=== PATIENT | female | born 1950 | race Caucasian/White ===

== ENCOUNTER 2017-11-07 08:43 | Day surgery (SDC) | payer MEDICARE, OTHER ==
[~2017-11-07 08:43] MED LIST: ALBU90OI INH; AMIT75 PO; AMLO10 PO; ASPI325EC PO; CRANBERRY500 M1 PO; Desyrel50 MG PO; ESCI10 PO; GABA600 PO; IBUP800 PO; LABE100 PO; Labetalol HCl300 MG PO; MULTI VITAMIN1 EACH PO; POLY500 PO; PRAV20 PO; QUET25 PO; TOPI50 PO; Triamcinolone A15 GM TOP; Ultram50 MG PO
[2017-11-08] MEDS ORDERED: Percocet 5-3251 EACH PO (08:57)
== END 2017-11-08 13:40 | disposition home or self-care (01) ==
LOC: SURS 08:43 → ORSCMMR 08:43 → PRE IP 08:43 → SURS 08:43 → EDSTATUS 10:15 → PRE IP 10:15 → SURS 14:16 → ORSCMMR 11-08 13:40
PROVIDERS: Orthopaedic Surgery
PROC: 0QSF04Z Reposition Left Patella with Internal Fixation Device, Open Approach (ICD-10-PCS; principal; 2017-11-07 10:15)
DX: S82.002A Unspecified fracture of left patella, initial encounter for closed fracture (principal); J44.9 Chronic obstructive pulmonary disease, unspecified; I25.2 Old myocardial infarction; Z87.891 Personal history of nicotine dependence; Z86.73 Personal history of transient ischemic attack (TIA), and cerebral infarction without residual deficits; I25.10 Atherosclerotic heart disease of native coronary artery without angina pectoris; Z79.899 Other long term (current) drug therapy
CPT/HCPCS: 73560-LT; 97161; 97530; C1713; G8978; G8979; G8980; J0690; J1100; J2250; J2270; J2405; J2550; J3010; J7120; Q0163

== ENCOUNTER 2017-11-28 08:43 | Day surgery (SDC) | payer MEDICARE, OTHER ==
[~2017-11-28] VITALS: Ht 157.5 cm; Wt 67.6 kg
[~2017-11-28 08:43] MED LIST changes: +Percocet 5-3251 EACH PO
== END 2017-11-29 11:30 | disposition home or self-care (01) ==
LOC: ORSCMMR 08:43 → SURS 08:43 → PRE IP 08:43 → SURS 08:43 → EDSTATUS 10:15 → PRE IP 10:15 → SURS 13:02 → ORSCMMR 11-29 11:30 → SURS 11-29 11:30
PROVIDERS: Orthopaedic Surgery
PROC: 0QSF04Z Reposition Left Patella with Internal Fixation Device, Open Approach (ICD-10-PCS; principal; 2017-11-28 10:15)
DX: S82.002G Unspecified fracture of left patella, subsequent encounter for closed fracture with delayed healing (principal); I25.10 Atherosclerotic heart disease of native coronary artery without angina pectoris; I25.2 Old myocardial infarction; I69.354 Hemiplegia and hemiparesis following cerebral infarction affecting left non-dominant side; Z79.82 Long term (current) use of aspirin; Z79.899 Other long term (current) drug therapy
CPT/HCPCS: 73560-LT; 94762; 97110; 97161; 97530; G8978; G8979; G8980; J0171; J0690; J1100; J1170; J1885; J2250; J2405; J3010; J7120; Q0163

== ENCOUNTER → 2018-11-18 | Outpatient (CLI) | payer MEDICARE, OTHER | END | disposition home or self-care (01) | LOC: LAB 18:31 → LAB SHORT 18:31 | DX: R35.0 Frequency of micturition (principal) | CPT/HCPCS: 87086 ==

== ENCOUNTER 2019-01-22 20:08 | Emergency (ER) | payer MEDICARE, OTHER ==
[~2019-01-22] VITALS: Ht 157.5 cm; Wt 74.8 kg
== END 2019-01-22 23:29 | disposition home or self-care (01) ==
LOC: ER 20:08
DX: S20.212A Contusion of left front wall of thorax, initial encounter (principal); I10 Essential (primary) hypertension; F32.9 Major depressive disorder, single episode, unspecified; F41.9 Anxiety disorder, unspecified; Z87.891 Personal history of nicotine dependence; Z79.899 Other long term (current) drug therapy; W01.0XXA Fall on same level from slipping, tripping and stumbling without subsequent striking against object, initial encounter
CPT/HCPCS: 71101; 99283-25; A9270-GY

== ENCOUNTER 2019-01-24 00:30 | Emergency (ER) | payer MEDICARE, OTHER ==
[~2019-01-24] VITALS: Ht 157.5 cm; Wt 68.0 kg
[2019-01-24 01:02] LABS: Source, Urine Catheter
[2019-01-24 01:06] LABS: Bilirubin, Urine Neg (Neg); Blood, Urine Neg (Neg); Glucose Qualitative, Urine Neg (Neg); Ketones, Urine Neg (Neg); Leukocyte Esterase, Urine Neg (Neg); Nitrite, Urine Neg (Neg); Protein, Urine 3+ (Neg); Urobilinogen, Urine NORM (Normal)
[2019-01-24 01:08] LABS: Appearance, Urine Clear (Clear); Color, Urine Pale Yellow (P-Yellow)
[2019-01-24] MEDS ORDERED: Tizanidine HCl2 MG PO (01:08)
[2019-01-24] MEDS ORDERED: OLAN7.5 PO (01:08)
[2019-01-24 01:14] LABS: Amorphous Light (0-Heavy); Bacteria Not Seen /hpf; Red Blood Cells, Urine Rare /hpf (0-2); Squamous Epithelial Cells Not Seen /hpf (Few); White Blood Cells, Urine Rare /hpf (0-5)
[2019-01-24 01:25] LABS: U Amphetamine Screen Not Detected; U Barbituate Screen Not Detected; U Benzodiazapine Screen Not Detected; U Buprenorphine Screen Not Detected; U Cannabinoids Screen DETECTED; U Cocaine Screen Not Detected; U Methadone Screen Not Detected; U Methamphetamine Screen Not Detected; U Opiates Screen Not Detected; U Oxycodone Screen Not Detected; U Phencyclidine Screen Not Detected; U Propoxyphene Screen Not Detected
[2019-01-24 02:05] LABS: BASOPHILS ABSOLUTE AUTO 0.01 K/mm3 (0.00-0.23); BASOPHILS PERCENT AUTO 0 % (0-2); EOSINOPHILS ABSOLUTE AUTO 0.25 K/mm3 (0.00-0.68); EOSINOPHILS PERCENT AUTO 3 % (0-6); Hematocrit 44.7 % (33.0-51.0); Hemoglobin 14.7 g/dL (11.5-16.0); IMMATURE GRAN ABSOLUTE AUTO 0.05 K/mm3 (0.00-0.10); IMMATURE GRAN PERCENT AUTO 1 % (0-1); LYMPHOCYTES ABSOLUTE AUTO 1.46 K/mm3 (0.84-5.20); LYMPHOCYTES PERCENT AUTO 17 % (21-46); MONOCYTES ABSOLUTE AUTO 0.55 K/mm3 (0.16-1.47); MONOCYTES PERCENT AUTO 6 % (4-13); Mean Corpuscular HGB 29.9 pg (26.0-34.0); Mean Corpuscular HGB Conc 32.9 g/dL (31.5-36.5); Mean Corpuscular Volume 91 fL (80-100); NEUTROPHILS ABSOLUTE AUTO 6.21 K/mm3 (1.96-9.15); NEUTROPHILS PERCENT AUTO 73 % (41-73); RDW Coefficient Variation 13.5 % (11.7-14.2); RDW Standard Deviation 45.2 fL (35.1-46.3); Red Blood Cell Count 4.92 M/mm3 (3.80-5.20); White Blood Cell Count 8.53 K/mm3 (4.00-11.30)
[2019-01-24 02:08] LABS: International Normalized Ratio 0.94
[2019-01-24 02:12] LABS: Mean Platelet Volume 11.6 fL (9.1-12.4); Platelet Count 197 K/mm3 (150-400)
[2019-01-24 02:50] LABS: Alanine Aminotransfer (ALT/SGP 33 U/L (12-78); Albumin, Blood 3.7 g/dL (3.4-5.0); Albumin/Globulin Ratio 1.1 (0.8-1.8); Alk Phos 100 U/L (50-136); Anion Gap 11 mmol/L (6-16); Aspartate Aminotrans (AST/SGOT 24 U/L (12-37); Bilirubin, Total 0.3 mg/dL (0.1-1.0); Blood Urea Nitrogen 21 mg/dL (8-24); Bun/Creatinine Ratio 26.6 (12.0-20.0); CO2, Blood 21 mmol/L (21-32); Calcium, Blood 8.7 mg/dL (8.5-10.1); Chloride, Blood 111 mmol/L (98-108); Creatinine, Blood 0.79 mg/dL (0.40-1.00); Globulin, Blood 3.3 g/dL (2.2-4.0); Glomerular Filtration Rate >60 (60-); Glucose, Blood 138 mg/dL (70-99); Potassium, Blood 3.8 mmol/L (3.5-5.5); Sodium, Blood 143 mmol/L (136-145)
== END 2019-01-24 03:03 | disposition home or self-care (01) ==
LOC: ER 00:30
PROVIDERS: Emergency Medicine
DX: S06.5X9A Traumatic subdural hemorrhage with loss of consciousness of unspecified duration, initial encounter (principal); S00.03XA Contusion of scalp, initial encounter; I10 Essential (primary) hypertension; G89.29 Other chronic pain; Z88.8 Allergy status to other drugs, medicaments and biological substances; Z79.899 Other long term (current) drug therapy; Z86.73 Personal history of transient ischemic attack (TIA), and cerebral infarction without residual deficits; Z87.891 Personal history of nicotine dependence; W19.XXXA Unspecified fall, initial encounter
CPT/HCPCS: 36415; 70450; 72125; 80053; 81001; 85025; 85610; 85730; J2270; P9612

== ENCOUNTER 2019-01-27 17:13 | Inpatient (IN) | payer MEDICARE, OTHER ==
[~2019-01-27] VITALS: Ht 160 cm; Wt 77.1 kg
[~2019-01-27 17:13] MED LIST changes: -AMIT75 PO; +Amitriptyline100 MG PO; +OLAN7.5 PO; +Tizanidine HCl2 MG PO
[2019-01-27 18:56] LABS: Albumin, Blood 3.5 g/dL (3.4-5.0); Albumin/Globulin Ratio 0.8 (0.8-1.8); Bilirubin, Total 0.4 mg/dL (0.1-1.0); Bun/Creatinine Ratio 21.1 (12.0-20.0); Calcium, Blood 9.1 mg/dL (8.5-10.1); Creatinine, Blood 1.09 mg/dL (0.40-1.00); Globulin, Blood 4.3 g/dL (2.2-4.0); Total Protein, Blood 7.8 g/dL (6.4-8.2)
[2019-01-27 19:31] LABS: Source, Urine Clean Catch
[2019-01-27 19:35] LABS: Bilirubin, Urine Neg (Neg); Blood, Urine 2+ (Neg); Glucose Qualitative, Urine Neg (Neg); Ketones, Urine Neg (Neg); Leukocyte Esterase, Urine 3+ (Neg); Nitrite, Urine Neg (Neg); Protein, Urine 3+ (Neg); Urobilinogen, Urine NORM (Normal)
[2019-01-27 19:36] LABS: Appearance, Urine Clear (Clear); Color, Urine Yellow (P-Yellow)
[2019-01-27 19:49] LABS: Bacteria Few /hpf; Red Blood Cells, Urine 0-2 /hpf (0-2); Squamous Epithelial Cells Few /hpf (Few)
[2019-01-27 20:06] LABS: BASOPHILS ABSOLUTE AUTO 0.01 K/mm3 (0.00-0.23); BASOPHILS PERCENT AUTO 0 % (0-2); EOSINOPHILS ABSOLUTE AUTO 0.24 K/mm3 (0.00-0.68); EOSINOPHILS PERCENT AUTO 3 % (0-6); Hematocrit 40.5 % (33.0-51.0); IMMATURE GRAN ABSOLUTE AUTO 0.03 K/mm3 (0.00-0.10); IMMATURE GRAN PERCENT AUTO 0 % (0-1); LYMPHOCYTES ABSOLUTE AUTO 1.75 K/mm3 (0.84-5.20); LYMPHOCYTES PERCENT AUTO 22 % (21-46); MONOCYTES ABSOLUTE AUTO 0.67 K/mm3 (0.16-1.47); MONOCYTES PERCENT AUTO 8 % (4-13); Mean Corpuscular HGB 29.3 pg (26.0-34.0); Mean Corpuscular HGB Conc 32.1 g/dL (31.5-36.5); Mean Corpuscular Volume 91 fL (80-100); Mean Platelet Volume 10.2 fL (9.1-12.4); NEUTROPHILS ABSOLUTE AUTO 5.37 K/mm3 (1.96-9.15); NEUTROPHILS PERCENT AUTO 67 % (41-73); Platelet Count 248 K/mm3 (150-400); RDW Coefficient Variation 13.8 % (11.7-14.2); RDW Standard Deviation 47.2 fL (35.1-46.3); Red Blood Cell Count 4.43 M/mm3 (3.80-5.20); White Blood Cell Count 8.07 K/mm3 (4.00-11.30)
[2019-01-27] MEDS ORDERED: LABE100 PO (20:45)
[2019-01-27] MEDS ORDERED: GABA800 PO (20:46)
--- NOTE | 2019-01-28 05:11 | NUR ---
VSS, AFEBRILE, A/O, PT WAS FOUND STANDING IN THE BATHROOM. PT WAS ANGRY/SURPRISED/FRUSTRATED TO DISCOVER THAT SHE IS IN THE HOSPITAL. PT WAS UNSURE ABOUT WHICH HOSPITAL SHE IS IN RIGHT NOW, BUT WAS EASILY REORIENTED. PT STATED "i DON'T LIKE TO GIVE OTHER PEOPLE CONTROL OVER MY LIFE". HER DEFIANCE AND RESISTANCE FADED AFTER SHE WAS REMINDED THAT SHE HAS BEEN FALLING AT HOME. PT ACKNOWLEDGED THAT SHE NEEDS PHYSICAL THERAPY TO LEARN HOW TO BE SAFELY INDEPENDENT AGAIN. PT REMAINS SOMEWHAT ANNOYED/DEFIANT AT THIS TIME. SHE SETS OFF THE BED ALARM FREQUENTLY. PT IS GOING TO NEED CLOSE SUPERVISION TO PREVENT FURTHER INJURY TO HER ALREADY HEAVILY BRUISED BODY. SHE IS TRYING TO REACH HER BY TELEPHONE AT THIS TIME. WILL CONTINUE TO MONITOR.
[2019-01-28 05:50] LABS: BASOPHILS ABSOLUTE AUTO 0.02 K/mm3 (0.00-0.23); BASOPHILS PERCENT AUTO 0 % (0-2); EOSINOPHILS ABSOLUTE AUTO 0.32 K/mm3 (0.00-0.68); EOSINOPHILS PERCENT AUTO 4 % (0-6); Hematocrit 39.6 % (33.0-51.0); Hemoglobin 12.9 g/dL (11.5-16.0); IMMATURE GRAN ABSOLUTE AUTO 0.02 K/mm3 (0.00-0.10); IMMATURE GRAN PERCENT AUTO 0 % (0-1); LYMPHOCYTES ABSOLUTE AUTO 1.66 K/mm3 (0.84-5.20); LYMPHOCYTES PERCENT AUTO 23 % (21-46); MONOCYTES ABSOLUTE AUTO 0.68 K/mm3 (0.16-1.47); MONOCYTES PERCENT AUTO 9 % (4-13); Mean Corpuscular HGB 29.7 pg (26.0-34.0); Mean Corpuscular HGB Conc 32.6 g/dL (31.5-36.5); Mean Corpuscular Volume 91 fL (80-100); Mean Platelet Volume 10.3 fL (9.1-12.4); NEUTROPHILS ABSOLUTE AUTO 4.66 K/mm3 (1.96-9.15); NEUTROPHILS PERCENT AUTO 63 % (41-73); Platelet Count 245 K/mm3 (150-400); RDW Coefficient Variation 13.8 % (11.7-14.2); RDW Standard Deviation 46.5 fL (35.1-46.3); Red Blood Cell Count 4.34 M/mm3 (3.80-5.20); White Blood Cell Count 7.36 K/mm3 (4.00-11.30)
[2019-01-28 06:11] LABS: Bun/Creatinine Ratio 19.6 (12.0-20.0); Calcium, Blood 8.9 mg/dL (8.5-10.1); Creatinine, Blood 1.07 mg/dL (0.40-1.00); Magnesium, Blood 2.3 mg/dL (1.6-2.4); Potassium, Blood 3.5 mmol/L (3.5-5.5)
--- NOTE | 2019-01-28 17:37 | NUR ---
PT AOX3 WITH SOME MINOR CONFUSION. PT HAS BEEN CALLING APPROPRIATELY AND IS TREATED FOR PAIN PER EMAR. PT UP IN CHAIR MOST OF THE DAY AND IS A ONE PERSON WITH GAIT BELT AND CANE AT THIS TIME. PT RESTING IN BED, WILL CONTINUE TO MONITOR CALL LIGHT WITHIN REACH.
--- NOTE | 2019-01-29 05:33 | NUR ---
VSS, AFEBRILE, A/O, PT IS MORE COOPERATIVE AND RESPONSIVE TODAY. PT SLEPT WELL OVERNOC, NO COMPLAINTS. PT IS IMPROVING IN HER MOBILITY AND SAFETY AWARENESS. WILL REPORT TO ON-COMING SHIFT.
[2019-01-29] MEDS ORDERED: CEPH500 PO (11:13)
--- NOTE | 2019-01-29 11:26 | NUR ---
UNABLE TO SCHED DISCHARGE FOLLOW UP APT CALLED PTS PRIMARY OFFICE TO SCHEDULE, THE OFFICE REQUIRES TO SPEAK WITH PT TO SCHEDULE APT FOR INSURANCE INFORMATION.
--- NOTE | 2019-01-29 12:19 | NUR ---
PATIENT DISCHARGE THE PATIENT WAS DISCHARGED HOME VIA AMBULANCE, AFTER DISCHARGE INSTRUCTIONS WERE GIVEN TO THE PATIENT. THE PATIENT WAS INSTRUCTED TO FOLLOW UP WITH HER PCP AND TO ALUMINUM POURER HER PRESCRIPTION AT HER PHARMACY. THE PATIENT LEFT THE HOSPITAL WITHOUT CONCERN OR COMPLAINT.
== END 2019-01-29 12:16 | disposition home or self-care (01) | DRG 689 ==
LOC: ER 17:13 → MEDS 22:21 → ENPENDDIS 01-29 11:23 → MEDS 01-29 12:16
PROVIDERS: Emergency Medicine; Nurse Practitioner Acute Care; ADMIT Internal Medicine
DX: N39.0 Urinary tract infection, site not specified (principal); G92 Toxic encephalopathy; I69.354 Hemiplegia and hemiparesis following cerebral infarction affecting left non-dominant side; I50.32 Chronic diastolic (congestive) heart failure; W19.XXXA Unspecified fall, initial encounter; R32 Unspecified urinary incontinence; R29.6 Repeated falls; I11.0 Hypertensive heart disease with heart failure; B96.20 Unspecified Escherichia coli [E. coli] as the cause of diseases classified elsewhere; Z95.0 Presence of cardiac pacemaker; Z90.5 Acquired absence of kidney; Z87.891 Personal history of nicotine dependence
CPT/HCPCS: 36415; 70450; 80048; 80053; 81001; 82550; 83735; 85025; 87077; 87086; 87186; 96365; 96375; 97116; 97162; 97166; 97535; 99285-25; J0696; J2405; J3010; J7030

== ENCOUNTER 2019-03-26 17:54 | Emergency (ER) | payer OTHER ==
[~2019-03-26] VITALS: Ht 157.5 cm; Wt 73.0 kg
[~2019-03-26 17:54] MED LIST changes: +CEPH500 PO; +GABA800 PO
[2019-03-26 18:28] LABS: Source, Urine Catheter
[2019-03-26 18:32] LABS: Bilirubin, Urine Neg (Neg); Blood, Urine Neg (Neg); Glucose Qualitative, Urine Neg (Neg); Ketones, Urine Neg (Neg); Leukocyte Esterase, Urine Neg (Neg); Nitrite, Urine Neg (Neg); Protein, Urine 3+ (Neg); Specific Gravity, Urine 1.015 (1.003-1.022); Urobilinogen, Urine NORM (Normal)
[2019-03-26 18:57] LABS: Appearance, Urine Clear (Clear); Color, Urine Yellow (P-Yellow)
[2019-03-26 18:58] LABS: Bacteria Few /hpf; Red Blood Cells, Urine 0-2 /hpf (0-2); Squamous Epithelial Cells Few /hpf (Few)
[2019-03-26 19:27] LABS: BASOPHILS ABSOLUTE AUTO 0.02 K/mm3 (0.00-0.23); BASOPHILS PERCENT AUTO 0 % (0-2); EOSINOPHILS ABSOLUTE AUTO 0.17 K/mm3 (0.00-0.68); EOSINOPHILS PERCENT AUTO 2 % (0-6); Hematocrit 44.4 % (33.0-51.0); Hemoglobin 14.5 g/dL (11.5-16.0); IMMATURE GRAN ABSOLUTE AUTO 0.03 K/mm3 (0.00-0.10); IMMATURE GRAN PERCENT AUTO 0 % (0-1); LYMPHOCYTES ABSOLUTE AUTO 1.97 K/mm3 (0.84-5.20); LYMPHOCYTES PERCENT AUTO 26 % (21-46); MONOCYTES ABSOLUTE AUTO 0.54 K/mm3 (0.16-1.47); MONOCYTES PERCENT AUTO 7 % (4-13); Mean Corpuscular HGB 29.4 pg (26.0-34.0); Mean Corpuscular HGB Conc 32.7 g/dL (31.5-36.5); Mean Corpuscular Volume 90 fL (80-100); Mean Platelet Volume 10.5 fL (9.1-12.4); NEUTROPHILS ABSOLUTE AUTO 4.75 K/mm3 (1.96-9.15); NEUTROPHILS PERCENT AUTO 64 % (41-73); Platelet Count 225 K/mm3 (150-400); RDW Coefficient Variation 14.3 % (11.7-14.2); RDW Standard Deviation 47.6 fL (35.1-46.3); Red Blood Cell Count 4.94 M/mm3 (3.80-5.20); White Blood Cell Count 7.48 K/mm3 (4.00-11.30)
[2019-03-26 19:50] LABS: Anion Gap 7 mmol/L (6-16); Blood Urea Nitrogen 22 mg/dL (8-24); CO2, Blood 25 mmol/L (21-32); Calcium, Blood 8.8 mg/dL (8.5-10.1); Chloride, Blood 112 mmol/L (98-108); Creatinine, Blood 0.96 mg/dL (0.40-1.00); Glomerular Filtration Rate >60 (60-); Glucose, Blood 107 mg/dL (70-99); Potassium, Blood 3.3 mmol/L (3.5-5.5); Sodium, Blood 144 mmol/L (136-145)
[2019-03-26] MEDS ORDERED: Norco 5-325 Ta1 EACH PO (20:08)
== END 2019-03-26 20:58 | disposition home or self-care (01) ==
LOC: ER 17:54
PROVIDERS: Emergency Medicine
DX: S09.90XA Unspecified injury of head, initial encounter (principal); S39.012A Strain of muscle, fascia and tendon of lower back, initial encounter; S66.911A Strain of unspecified muscle, fascia and tendon at wrist and hand level, right hand, initial encounter; I11.0 Hypertensive heart disease with heart failure; I50.30 Unspecified diastolic (congestive) heart failure; Z87.891 Personal history of nicotine dependence; W18.30XA Fall on same level, unspecified, initial encounter
CPT/HCPCS: 36415; 70450; 72100; 73110; 80048; 81001; 85025; 96374; 99284-25; A9270; J1170; P9612

== ENCOUNTER 2019-03-27 20:25 | Emergency (ER) | payer OTHER ==
[~2019-03-27] VITALS: Ht 157.5 cm; Wt 73.5 kg
[~2019-03-27 20:25] MED LIST changes: +Norco 5-325 Ta1 EACH PO
[2019-03-27 20:46] LABS: BASOPHILS ABSOLUTE AUTO 0.02 K/mm3 (0.00-0.23); BASOPHILS PERCENT AUTO 0 % (0-2); EOSINOPHILS ABSOLUTE AUTO 0.25 K/mm3 (0.00-0.68); EOSINOPHILS PERCENT AUTO 3 % (0-6); Hematocrit 46.7 % (33.0-51.0); IMMATURE GRAN ABSOLUTE AUTO 0.03 K/mm3 (0.00-0.10); IMMATURE GRAN PERCENT AUTO 0 % (0-1); LYMPHOCYTES ABSOLUTE AUTO 1.86 K/mm3 (0.84-5.20); LYMPHOCYTES PERCENT AUTO 22 % (21-46); MONOCYTES PERCENT AUTO 7 % (4-13); Mean Corpuscular HGB 29.4 pg (26.0-34.0); Mean Corpuscular HGB Conc 32.1 g/dL (31.5-36.5); Mean Corpuscular Volume 92 fL (80-100); Mean Platelet Volume 11.4 fL (9.1-12.4); NEUTROPHILS ABSOLUTE AUTO 5.76 K/mm3 (1.96-9.15); NEUTROPHILS PERCENT AUTO 68 % (41-73); Platelet Count 194 K/mm3 (150-400); RDW Coefficient Variation 14.2 % (11.7-14.2); RDW Standard Deviation 47.9 fL (35.1-46.3); White Blood Cell Count 8.52 K/mm3 (4.00-11.30)
[2019-03-27 20:58] LABS: Alanine Aminotransfer (ALT/SGP 29 U/L (12-78); Albumin, Blood 3.6 g/dL (3.4-5.0); Albumin/Globulin Ratio 0.9 (0.8-1.8); Alk Phos 133 U/L (50-136); Anion Gap 10 mmol/L (6-16); Aspartate Aminotrans (AST/SGOT 23 U/L (12-37); Bilirubin, Total 0.2 mg/dL (0.1-1.0); Blood Urea Nitrogen 21 mg/dL (8-24); Bun/Creatinine Ratio 17.5 (12.0-20.0); CO2, Blood 25 mmol/L (21-32); Calcium, Blood 8.9 mg/dL (8.5-10.1); Chloride, Blood 107 mmol/L (98-108); Globulin, Blood 4.2 g/dL (2.2-4.0); Glomerular Filtration Rate 48 (60-); Glucose, Blood 134 mg/dL (70-99); Potassium, Blood 3.2 mmol/L (3.5-5.5); Sodium, Blood 142 mmol/L (136-145); Total Protein, Blood 7.8 g/dL (6.4-8.2); Troponin I <0.015 ng/mL (0.000-0.040)
== END 2019-03-27 22:56 | disposition short-term general hospital (02) ==
LOC: ER 20:25
PROVIDERS: Physician Assistant
DX: S06.5X9A Traumatic subdural hemorrhage with loss of consciousness of unspecified duration, initial encounter (principal); I10 Essential (primary) hypertension; Z86.73 Personal history of transient ischemic attack (TIA), and cerebral infarction without residual deficits; Z87.891 Personal history of nicotine dependence; Z91.81 History of falling; W17.89XA Other fall from one level to another, initial encounter
CPT/HCPCS: 70450; 80053; 84484; 85025; 93005; 93010; 99285-25

== ENCOUNTER 2019-04-09 08:57 | Inpatient (IN) | payer OTHER ==
[~2019-04-09] VITALS: Ht 162.6 cm; Wt 79.5 kg
[2019-04-09 09:15] LABS: BASOPHILS ABSOLUTE AUTO 0.01 K/mm3 (0.00-0.23); BASOPHILS PERCENT AUTO 0 % (0-2); EOSINOPHILS ABSOLUTE AUTO 0.26 K/mm3 (0.00-0.68); EOSINOPHILS PERCENT AUTO 3 % (0-6); Hematocrit 32.9 % (33.0-51.0); Hemoglobin 10.7 g/dL (11.5-16.0); IMMATURE GRAN ABSOLUTE AUTO 0.06 K/mm3 (0.00-0.10); IMMATURE GRAN PERCENT AUTO 1 % (0-1); LYMPHOCYTES ABSOLUTE AUTO 0.31 K/mm3 (0.84-5.20); LYMPHOCYTES PERCENT AUTO 3 % (21-46); MONOCYTES PERCENT AUTO 4 % (4-13); Mean Corpuscular HGB 29.3 pg (26.0-34.0); Mean Corpuscular HGB Conc 32.5 g/dL (31.5-36.5); Mean Corpuscular Volume 90 fL (80-100); Mean Platelet Volume 11.1 fL (9.1-12.4); NEUTROPHILS ABSOLUTE AUTO 9.11 K/mm3 (1.96-9.15); NEUTROPHILS PERCENT AUTO 90 % (41-73); Platelet Count 129 K/mm3 (150-400); RDW Coefficient Variation 14.9 % (11.7-14.2); RDW Standard Deviation 49.6 fL (35.1-46.3); Red Blood Cell Count 3.65 M/mm3 (3.80-5.20); White Blood Cell Count 10.15 K/mm3 (4.00-11.30)
[2019-04-09 09:37] LABS: Albumin, Blood 2.2 g/dL (3.4-5.0); Albumin/Globulin Ratio 0.6 (0.8-1.8); Bilirubin, Total 0.5 mg/dL (0.1-1.0); Bun/Creatinine Ratio 13.4 (12.0-20.0); Creatinine, Blood 3.65 mg/dL (0.40-1.00); Globulin, Blood 3.9 g/dL (2.2-4.0); Potassium, Blood 4.8 mmol/L (3.5-5.5); Total Protein, Blood 6.1 g/dL (6.4-8.2)
[2019-04-09] MEDS ORDERED: POTCHL10ER PO (10:17)
[2019-04-09] MEDS ORDERED: AMIT50 PO (10:18)
[2019-04-09] MEDS ORDERED: PRAV20 PO (10:19)
[2019-04-09] MEDS ORDERED: Labetalol HCl300 MG PO (10:19)
[2019-04-09] MEDS ORDERED: Tizanidine HCl2 MG PO (10:19)
[2019-04-09] MEDS ORDERED: GABA300 PO (10:20)
[2019-04-09] MEDS ORDERED: ESCI20 PO (10:20)
[2019-04-09] MEDS ORDERED: OLAN2.5 PO (10:20)
[2019-04-09] MEDS ORDERED: OXYC5 PO (10:21)
--- NOTE | 2019-04-09 11:59 | NUR ---
PT ADMITTED PT ADMITTED IN STABLE CONDITION WITH VSS. PT ORIENTED TO ROOM. CALL LIGHT IN REACH. BED IN LOW POSITION. TOILETING OFFERED. PT SPOUSE, YOVANI HUBER & UNDATED ON PT ROOM NUMBER & CONDITION. PT SPOUSE ASSISTED WITH HEALTH HISTORY. WILL CONTINUE TO MONITOR.
[2019-04-09 15:31] LABS: Percent Saturation 8.8 % (15.0-50.0)
--- NOTE | 2019-04-09 16:10 | NUR ---
O2 SATS IN THE 80S ON . PT AFTERNOON VITALS SHOWED O2 SATS IN THE 80S. 2L APPLIED TO PT & O2 INCREASED TO LOW 90S. DAV[facility] GARCIA CALLED TO VERIFY THAT PT WAS NOT NEEDING O2 AT THEIR FACILITY. O2 SATS RECHECKED WITH A DIFFERENT MACHINE. PT SATING IN THE 90S ON AT THIS TIME. POSSIBLE BAD READING PREVIOUSLY. WILL CONTINUE TO MONITOR.
--- NOTE | 2019-04-09 16:33 | NUR ---
O2 NEEDS. PT O2 SATS FALLING ON RA TO 87-88% PT PLACED ON 2L O2 & SATING IN THE 90S. DR. POTTS NOTIFIED. CHEST XRAY & SPEECH EVAL ORDERED. WILL CONTINUE TO MONITOR.
--- NOTE | 2019-04-09 17:47 | NUR ---
SHIFT SUMMARY PT ON 2L O2 VIA NC. SATING IN THE S. PT TEMP UP TO 101.4 THIS AFTERNOON. PT GIVEN TYLENOL, COOL CLOTHES, ICE PACKS, & BLANKETS REMOVED. PT TEMP NOW AT 99.5 F. OTHER VITALS STABLE. NO OTHER CHANGES IN ASSESSMENT AT THIS TIME. WILL CONTINUE TO MONITOR UNTIL TURNOVER IS COMPLETE.
--- NOTE | 2019-04-10 00:44 | NUR ---
INCREASED O2 NEEDS PT BECOMES VERY TACHYPNIC, WITH VERY LITTLE AMOUNT OF EXERTION. IT WAS MOST SO PRONOUCHED SHORTLY AFTER MIDNIGHT. RESP RATE WHEN I COUNTED WAS 32. SATS WERE 89% ON 2L. LUNGS WITH WHEEZES T/O BUT NO AUDIBLE CRACKLES. CALLED RESPIRATORY FOR FURTHER EVALUATION. THEY ALSO DID NOT HEAR AUDIBLE CRACKLES BUT NOTED THAT SHE WAS TACHYPNIC. THEY RECOMMMENDED THAT I NOTIFY THE DOCTOR. PT HAS HAD 2 FULL BAGS OF NS, AND HAS STARTED HER 3RD BAG ORDERED. X-RAY ALSO SHOWS ATLECTASIS. DR. RODRIGUEZ CALLED AND NOTIFIED OF THESE FINDINGS. HE DECREASED FLUID RATE FROM 100 ML/HR TO 80 ML/HR, AND ORDERED NEBS. PT RATE HAS COME DOWN SINCE INCREASING O2 FROM 2L TO 3L. ASIDE FROM INCREASED RESPIRATIONS AT TIMES. NO OTHER S/S OF DISRESS. MONITORING. GARDEN CENTER MANAGER AWARE.
--- NOTE | 2019-04-10 04:18 | NUR ---
SHIFT SUMMARY PT HAD INCREASED O2 NEEDS THIS SHIFT. PLEASE SEE PRIOR NURSES NOTES. PT O2 INCREASED FROM 2L TO 3L. DR. RODRIGUEZ NOTIFIED OF THIS, ORDERS GIVEN. PT MEDICATED FOR HEADACHE WITH TYLENOL, WHICH PROVIDED RELIEF. PT A/OX3 MOST OF THE TIME, BUT POOR HISTORIAN AND CAN BE FORGETFUL. NS INFUSING AT 80 ML/HR, PT VOIDING. MEDS CRUSHED IN APPLESAUCE. NECTAR THICK LIQUIDS. PT TOLERATED. PENDING SPEECH EVAL. NO OTHER CHANGES TO REPORT. WILL CONTINUE TO MONITOR AND REPORT TO ONCOMING RN.
[2019-04-10 05:08] LABS: BASOPHILS ABSOLUTE AUTO 0.02 K/mm3 (0.00-0.23); BASOPHILS PERCENT AUTO 0 % (0-2); EOSINOPHILS ABSOLUTE AUTO 0.08 K/mm3 (0.00-0.68); EOSINOPHILS PERCENT AUTO 1 % (0-6); Hematocrit 31.5 % (33.0-51.0); IMMATURE GRAN ABSOLUTE AUTO 0.03 K/mm3 (0.00-0.10); IMMATURE GRAN PERCENT AUTO 0 % (0-1); LYMPHOCYTES ABSOLUTE AUTO 0.32 K/mm3 (0.84-5.20); LYMPHOCYTES PERCENT AUTO 5 % (21-46); MONOCYTES ABSOLUTE AUTO 0.75 K/mm3 (0.16-1.47); MONOCYTES PERCENT AUTO 11 % (4-13); Mean Corpuscular HGB 29.5 pg (26.0-34.0); Mean Corpuscular HGB Conc 31.7 g/dL (31.5-36.5); Mean Platelet Volume 10.9 fL (9.1-12.4); NEUTROPHILS ABSOLUTE AUTO 5.89 K/mm3 (1.96-9.15); NEUTROPHILS PERCENT AUTO 83 % (41-73); Platelet Count 105 K/mm3 (150-400); RDW Coefficient Variation 15.2 % (11.7-14.2); RDW Standard Deviation 52.4 fL (35.1-46.3); Red Blood Cell Count 3.39 M/mm3 (3.80-5.20); White Blood Cell Count 7.09 K/mm3 (4.00-11.30)
[2019-04-10 05:09] LABS: Mean Corpuscular Volume 93 fL (80-100)
[2019-04-10 05:36] LABS: Bun/Creatinine Ratio 15.6 (12.0-20.0); Calcium, Blood 8.2 mg/dL (8.5-10.1); Creatinine, Blood 3.21 mg/dL (0.40-1.00); Potassium, Blood 4.8 mmol/L (3.5-5.5)
[2019-04-10 11:09] LABS: Source, Urine Voided
[2019-04-10 11:11] LABS: Bilirubin, Urine Neg (Neg); Blood, Urine 4+ (Neg); Glucose Qualitative, Urine Neg (Neg); Ketones, Urine Neg (Neg); Leukocyte Esterase, Urine 3+ (Neg); Nitrite, Urine Neg (Neg); Protein, Urine 3+ (Neg); Urobilinogen, Urine NORM (Normal)
[2019-04-10 11:39] LABS: Appearance, Urine Hazy (Clear); Color, Urine Yellow (P-Yellow)
[2019-04-10 11:40] LABS: White Blood Cells, Urine 50-100 /hpf (0-5)
[2019-04-10 11:41] LABS: Bacteria Many /hpf; Squamous Epithelial Cells Few /hpf (Few)
--- NOTE | 2019-04-10 17:06 | NUR ---
SHIFT SUMMARY PT HAD A LOW GRADE FEVER WITH AFTERNOON VITALS OF 100.6. TYLENOL GIVEN & ICE PACK FOR BACK OF NECK. PT TEMP RETURNED TO 98.3 F. PT CONT OF URINE AT TIMES. UA SENT TO LAB. PT STILL HAS YET TO HAVE A BM. NO OTHER CHANGES IN ASSESSMENT AT THIS TIME. VSS. WILL CONTINUE TO MONITOR UNTIL TURNOVER IS COMPLETE. PT SPOUSE UPDATED ON PT CONDITION.
--- NOTE | 2019-04-11 03:47 | NUR ---
SHIFT SUMMARY PATIENT HAD NO ACUTE CHANGES OBSERVED THIS SHIFT. AXOX 2-3 W/CONFUSION. PATIENT FEARFUL SOMEONE WILL COME INTO ROOM AND HARM HER. PATIENT REORIENTED TO PLACE. BEDFAST WITH LS WEAKNESS. PIV REMAINS INTACT. ON 3L O2 NC AND RT REPORTS SHE WAS PULLING NC OFF AND CHANGED RATE FROM 2-3L. VSS/AFEBRILE. NS INFUSING AT 100mL/HR. DENIES PAIN, SOB,AND N/V. DIRECTOR OF COLLECTIONS REPORTS NSR 67 AND PACED. PATIENT MORE ALERT T/O SHIFT. CALL LIGHT IN REACH. BED IN LOWEST POSITION. WILL CONTINUE TO MONITOR UNTIL DAY SHIFT NURSE ASSUMES CARE.
--- NOTE | 2019-04-11 04:39 | NUR ---
PATIENT HAVING INCREASED CONFUSION TALKING ABOUT SOMEONE COMING TO TAKE A MATTRESS OUT OF THE ROOM AND ALSO TO HARM HER. PATIENT NOT ABLE TO REORIENT AT THIS TIME. CALL LIGHT IN REACH.
[2019-04-11 05:31] LABS: BASOPHILS ABSOLUTE AUTO 0.02 K/mm3 (0.00-0.23); BASOPHILS PERCENT AUTO 0 % (0-2); EOSINOPHILS ABSOLUTE AUTO 0.12 K/mm3 (0.00-0.68); EOSINOPHILS PERCENT AUTO 2 % (0-6); Hematocrit 30.2 % (33.0-51.0); Hemoglobin 9.3 g/dL (11.5-16.0); IMMATURE GRAN ABSOLUTE AUTO 0.03 K/mm3 (0.00-0.10); IMMATURE GRAN PERCENT AUTO 1 % (0-1); LYMPHOCYTES ABSOLUTE AUTO 0.73 K/mm3 (0.84-5.20); LYMPHOCYTES PERCENT AUTO 11 % (21-46); MONOCYTES ABSOLUTE AUTO 0.83 K/mm3 (0.16-1.47); MONOCYTES PERCENT AUTO 13 % (4-13); Mean Corpuscular HGB 28.2 pg (26.0-34.0); Mean Corpuscular HGB Conc 30.8 g/dL (31.5-36.5); Mean Corpuscular Volume 92 fL (80-100); Mean Platelet Volume 10.9 fL (9.1-12.4); NEUTROPHILS ABSOLUTE AUTO 4.75 K/mm3 (1.96-9.15); NEUTROPHILS PERCENT AUTO 73 % (41-73); Platelet Count 122 K/mm3 (150-400); RDW Coefficient Variation 15.8 % (11.7-14.2); RDW Standard Deviation 52.9 fL (35.1-46.3); White Blood Cell Count 6.48 K/mm3 (4.00-11.30)
[2019-04-11 05:49] LABS: Bun/Creatinine Ratio 16.5 (12.0-20.0); Calcium, Blood 7.9 mg/dL (8.5-10.1); Creatinine, Blood 2.43 mg/dL (0.40-1.00); Potassium, Blood 4.8 mmol/L (3.5-5.5)
--- NOTE | 2019-04-11 15:16 | NUR ---
PT CONFUSED AND TEARFUL, SEEMS TO BE EXPERIENCING VISUAL HALLUCINATIONS, SPEAKING TO HER AND TWO SONS. NO FAMILY HAS BEEN AT BEDSIDE TODAY. SPOUSE DID CALL ON THE PHONE THIS MORNING. PT CRYING AND WANTS TO KNOW WHY WE WILL NOT LET HER GO HOME, SAYS NO ONE CARES, DOES NOT UNDERSTAND BEING IN THE HOSPITAL FOR MEDICAL TREATMENT. BED ALARM ARMED, WILL CONTINUE TO MONITOR.
--- NOTE | 2019-04-11 17:33 | NUR ---
RECEIVED T/C FROM PT'S CAREGIVER, MARITA. ATTEMPTED TO RETURN CALL, NO ANSWER.
--- NOTE | 2019-04-11 17:55 | NUR ---
PT SITTING UP AND EATING DINNER, NO TEARS AT THIS TIME, NO ACUTE CHANGES NOTED THIS SHIFT, WILL CONTINUE TO MONITOR AND REPORT TO ONCOMING RN
--- NOTE | 2019-04-11 21:40 | NUR ---
PATIENT CONFUSED AND HAVING AUDITORY HALLUCINATIONS.
--- NOTE | 2019-04-12 04:07 | NUR ---
SHIFT SUMMARY PATIENT HAD NO ACUTE CHANGES OBSERVED THIS SHIFT. AXO X2 W/CONFUSION. AUDITORY HALLUCINATIONS CONTINUED THIS SHIFT. BEDFAST. VSS/AFEBRILE. PIV REMAINS INTACT. NS INFUSING AT 100 mL/HR. ON 2-3 L O2 NC. CONSERVATION TECHNICIAN REPORTS NSR 81. PATIENT REPORTED GARCIA X ONE AND RECEIVED TYLENOL 650 MG PER EMAR. DENIES SOB AND N/V. CALL LIGHT IN REACH. BED IN LOWEST POSITION. WILL CONTINUE TO MONITOR UNTIL DAY SHIFT NURSE ASSUMES CARE.
[2019-04-12 09:58] LABS: Anion Gap 9 mmol/L (6-16); Blood Urea Nitrogen 27 mg/dL (8-24); Bun/Creatinine Ratio 16.3 (12.0-20.0); CO2, Blood 20 mmol/L (21-32); Calcium, Blood 8.2 mg/dL (8.5-10.1); Chloride, Blood 115 mmol/L (98-108); Creatinine, Blood 1.66 mg/dL (0.40-1.00); Glomerular Filtration Rate 33 (60-); Glucose, Blood 135 mg/dL (70-99); Phosphorus, Blood 3.1 mg/dL (2.5-4.9); Potassium, Blood 3.9 mmol/L (3.5-5.5); Sodium, Blood 144 mmol/L (136-145)
--- NOTE | 2019-04-12 19:10 | NUR ---
PT IRRITABLE LOOKING BUT COOPERATIVE WITH CARE TODAY. NO CRYING OR HALLUCINATIONS NOTED THIS SHIFT. NO REPORTS OF N/V/PAIN, NO ACUTE CHANGES NOTED. WILL CONTINUE TO MONITOR AND REPORT TO ONCOMING RN
--- NOTE | 2019-04-13 04:20 | NUR ---
SHIFT SUMMARY PATIENT HAD NO ACUTE CHANGES OBSERVED THIS SHIFT. AXO X2 TO SELF AND SPOUSE W/CONFUSION. NONSENSICAL SPEECH AT TIMES. PATIENT REPORTED SHE HAD A BABY AT SHIFT CHANGE. ON 3L O2 NC AND PULLS OFF A FEW TIMES PER SHIFT. PIV REMAINS INTACT. SUBJECT SCIENTIFIC RESEARCH REPORTS NSR 81. BACK PAIN X ONE AND TYLENOL GIVEN PER EMAR. DENIES SOB AND N/V. SPOUSE AND FRIEND PRESENT FIRST PART OF SHIFT. SMALL BM. CALL LIGHT IN REACH. BED IN LOWEST POSITION. WILL CONTINUE TO MONITOR UNTIL DAY SHIFT NURSE ASSUMES CARE.
[2019-04-13 05:32] LABS: BASOPHILS ABSOLUTE AUTO 0.03 K/mm3 (0.00-0.23); BASOPHILS PERCENT AUTO 0 % (0-2); EOSINOPHILS ABSOLUTE AUTO 0.22 K/mm3 (0.00-0.68); EOSINOPHILS PERCENT AUTO 3 % (0-6); Hematocrit 35.7 % (33.0-51.0); Hemoglobin 10.6 g/dL (11.5-16.0); IMMATURE GRAN ABSOLUTE AUTO 0.06 K/mm3 (0.00-0.10); IMMATURE GRAN PERCENT AUTO 1 % (0-1); LYMPHOCYTES ABSOLUTE AUTO 1.19 K/mm3 (0.84-5.20); LYMPHOCYTES PERCENT AUTO 17 % (21-46); MONOCYTES ABSOLUTE AUTO 0.62 K/mm3 (0.16-1.47); MONOCYTES PERCENT AUTO 9 % (4-13); Mean Corpuscular HGB 28.6 pg (26.0-34.0); Mean Corpuscular HGB Conc 29.7 g/dL (31.5-36.5); Mean Platelet Volume 10.7 fL (9.1-12.4); NEUTROPHILS ABSOLUTE AUTO 4.83 K/mm3 (1.96-9.15); NEUTROPHILS PERCENT AUTO 70 % (41-73); Platelet Count 208 K/mm3 (150-400); RDW Coefficient Variation 15.9 % (11.7-14.2); RDW Standard Deviation 57.1 fL (35.1-46.3); White Blood Cell Count 6.95 K/mm3 (4.00-11.30)
[2019-04-13 05:34] LABS: Mean Corpuscular Volume 97 fL (80-100)
[2019-04-13 05:49] LABS: Anion Gap 8 mmol/L (6-16); Blood Urea Nitrogen 26 mg/dL (8-24); Bun/Creatinine Ratio 18.1 (12.0-20.0); CO2, Blood 23 mmol/L (21-32); Calcium, Blood 8.3 mg/dL (8.5-10.1); Chloride, Blood 115 mmol/L (98-108); Creatinine, Blood 1.44 mg/dL (0.40-1.00); Glomerular Filtration Rate 38 (60-); Glucose, Blood 137 mg/dL (70-99); Phosphorus, Blood 3.3 mg/dL (2.5-4.9); Potassium, Blood 3.7 mmol/L (3.5-5.5); Sodium, Blood 146 mmol/L (136-145)
[2019-04-13] MEDS ORDERED: Docu Liqui50 MG/5 ML PO (13:59)
[2019-04-13] MEDS ORDERED: FERSU300 PO (14:00)
[2019-04-13] MEDS ORDERED: VSL (14:02)
[2019-04-13] MEDS ORDERED: MIRALAX17 GM PO (14:03)
[2019-04-13] MEDS ORDERED: CEFU500T30 PO (14:04)
--- NOTE | 2019-04-13 17:30 | NUR ---
REPORT CALLED TO LEODAN CARTER AT [facility]. QUESTIONS/CONCERNS ANSWERED. PHONE NUMBER LEFT WITH RECEIVING RN IN CASE ANY FURTHER QUESTIONS ARISE. PT TO BE PICKED UP AT 1800 FOR TRANSPORT.
--- NOTE | 2019-04-13 18:18 | NUR ---
PT TRANSPORTED TO [facility]
== END 2019-04-13 18:18 | DRG 917 ==
LOC: ER 08:57 → MEDS 10:13
PROVIDERS: Emergency Medicine; Internal Medicine; ADMIT Internal Medicine
DX: T40.2X1A Poisoning by other opioids, accidental (unintentional), initial encounter (principal); G92 Toxic encephalopathy; I69.354 Hemiplegia and hemiparesis following cerebral infarction affecting left non-dominant side; N17.9 Acute kidney failure, unspecified; I50.30 Unspecified diastolic (congestive) heart failure; I13.0 Hypertensive heart and chronic kidney disease with heart failure and stage 1 through stage 4 chronic kidney disease, or unspecified chronic kidney disease; N39.0 Urinary tract infection, site not specified; Z87.891 Personal history of nicotine dependence; Z95.0 Presence of cardiac pacemaker; Z90.5 Acquired absence of kidney; I25.10 Atherosclerotic heart disease of native coronary artery without angina pectoris; E78.5 Hyperlipidemia, unspecified; I25.2 Old myocardial infarction; Z95.5 Presence of coronary angioplasty implant and graft; G47.00 Insomnia, unspecified; E86.0 Dehydration; B96.20 Unspecified Escherichia coli [E. coli] as the cause of diseases classified elsewhere; F01.50 Vascular dementia, unspecified severity, without behavioral disturbance, psychotic disturbance, mood disturbance, and anxiety; N18.3 Chronic kidney disease, stage 3 (moderate)
CPT/HCPCS: 36415; 71046; 80048; 80053; 80069; 81001; 82728; 82947; 83540; 83550; 85025; 87077; 87086; 87186; 92526; 92610; 93005; 93010; 94640; 94760; 96360; 97110; 97162; 97165; 97530; 99285-25; A9270; J0696; J7030

== ENCOUNTER 2019-06-09 12:59 | Emergency (ER) | payer OTHER ==
[~2019-06-09] VITALS: Ht 157.5 cm; Wt 77.6 kg
[~2019-06-09 12:59] MED LIST changes: +AMIT50 PO; +CEFU500T30 PO; +Docu Liqui50 MG/5 ML PO; +ESCI20 PO; +FERSU300 PO; +GABA300 PO; +MIRALAX17 GM PO; +OLAN2.5 PO; +OXYC5 PO; +POTCHL10ER PO; +VSL
[2019-06-09 15:05] LABS: Source, Urine Voided
[2019-06-09 15:11] LABS: BASOPHILS ABSOLUTE AUTO 0.03 K/mm3 (0.00-0.23); BASOPHILS PERCENT AUTO 1 % (0-2); EOSINOPHILS ABSOLUTE AUTO 0.28 K/mm3 (0.00-0.68); EOSINOPHILS PERCENT AUTO 4 % (0-6); Hemoglobin 12.2 g/dL (11.5-16.0); IMMATURE GRAN ABSOLUTE AUTO 0.01 K/mm3 (0.00-0.10); IMMATURE GRAN PERCENT AUTO 0 % (0-1); LYMPHOCYTES ABSOLUTE AUTO 2.16 K/mm3 (0.84-5.20); LYMPHOCYTES PERCENT AUTO 34 % (21-46); MONOCYTES ABSOLUTE AUTO 0.55 K/mm3 (0.16-1.47); MONOCYTES PERCENT AUTO 9 % (4-13); Mean Corpuscular HGB 29.5 pg (26.0-34.0); Mean Corpuscular HGB Conc 31.3 g/dL (31.5-36.5); Mean Corpuscular Volume 94 fL (80-100); Mean Platelet Volume 10.4 fL (9.1-12.4); NEUTROPHILS ABSOLUTE AUTO 3.31 K/mm3 (1.96-9.15); NEUTROPHILS PERCENT AUTO 52 % (41-73); Platelet Count 245 K/mm3 (150-400); RDW Coefficient Variation 15.8 % (11.7-14.2); RDW Standard Deviation 54.5 fL (35.1-46.3); Red Blood Cell Count 4.14 M/mm3 (3.80-5.20); White Blood Cell Count 6.34 K/mm3 (4.00-11.30)
[2019-06-09 15:12] LABS: Bilirubin, Urine Neg (Neg); Blood, Urine Neg (Neg); Glucose Qualitative, Urine Neg (Neg); Ketones, Urine Neg (Neg); Leukocyte Esterase, Urine 1+ (Neg); Nitrite, Urine Neg (Neg); Protein, Urine 3+ (Neg); Urobilinogen, Urine NORM (Normal)
[2019-06-09 15:34] LABS: U Amphetamine Screen Not Detected; U Barbituate Screen Not Detected; U Benzodiazapine Screen Not Detected; U Buprenorphine Screen Not Detected; U Cannabinoids Screen DETECTED; U Cocaine Screen Not Detected; U Methadone Screen Not Detected; U Methamphetamine Screen Not Detected; U Opiates Screen Not Detected; U Oxycodone Screen Not Detected; U Phencyclidine Screen Not Detected; U Propoxyphene Screen Not Detected
[2019-06-09 15:36] LABS: Appearance, Urine Clear (Clear); Color, Urine Yellow (P-Yellow)
[2019-06-09 15:38] LABS: Bacteria Mod /hpf; Red Blood Cells, Urine Not Seen /hpf (0-2); Squamous Epithelial Cells Few /hpf (Few); White Blood Cells, Urine 0-2 /hpf (0-5)
== END 2019-06-09 16:47 | disposition home or self-care (01) ==
LOC: ER 12:59
PROVIDERS: Emergency Medicine
DX: S09.90XA Unspecified injury of head, initial encounter (principal); S90.112A Contusion of left great toe without damage to nail, initial encounter; I11.0 Hypertensive heart disease with heart failure; I50.30 Unspecified diastolic (congestive) heart failure; Z87.440 Personal history of urinary (tract) infections; Z87.891 Personal history of nicotine dependence; Z86.73 Personal history of transient ischemic attack (TIA), and cerebral infarction without residual deficits; Z79.899 Other long term (current) drug therapy; W01.198A Fall on same level from slipping, tripping and stumbling with subsequent striking against other object, initial encounter
CPT/HCPCS: 36415; 70450; 73630; 81001; 84443; 85025; 87086; 93005; 93010; 96360; 99285-25; J7030

== ENCOUNTER 2019-06-15 09:01 | Inpatient (IN) | payer OTHER ==
[~2019-06-15] VITALS: Ht 157.5 cm; Wt 77.1 kg
[2019-06-15 10:22] LABS: Source, Urine Catheter
[2019-06-15 10:29] LABS: Bilirubin, Urine Neg (Neg); Blood, Urine Neg (Neg); Glucose Qualitative, Urine Neg (Neg); Ketones, Urine Neg (Neg); Leukocyte Esterase, Urine Neg (Neg); Nitrite, Urine Neg (Neg); Protein, Urine 3+ (Neg); Specific Gravity, Urine 1.015 (1.003-1.022); Urobilinogen, Urine NORM (Normal)
[2019-06-15 10:42] LABS: Appearance, Urine Clear (Clear); Bacteria Not Seen /hpf; Color, Urine Pale Yellow (P-Yellow); Red Blood Cells, Urine Not Seen /hpf (0-2); Squamous Epithelial Cells Few /hpf (Few); White Blood Cells, Urine Not Seen /hpf (0-5)
[2019-06-15 11:06] LABS: BASOPHILS ABSOLUTE AUTO 0.02 K/mm3 (0.00-0.23); BASOPHILS PERCENT AUTO 0 % (0-2); EOSINOPHILS ABSOLUTE AUTO 0.27 K/mm3 (0.00-0.68); EOSINOPHILS PERCENT AUTO 4 % (0-6); Hematocrit 41.6 % (33.0-51.0); Hemoglobin 12.5 g/dL (11.5-16.0); IMMATURE GRAN ABSOLUTE AUTO 0.01 K/mm3 (0.00-0.10); IMMATURE GRAN PERCENT AUTO 0 % (0-1); LYMPHOCYTES ABSOLUTE AUTO 1.91 K/mm3 (0.84-5.20); LYMPHOCYTES PERCENT AUTO 28 % (21-46); MONOCYTES ABSOLUTE AUTO 0.58 K/mm3 (0.16-1.47); MONOCYTES PERCENT AUTO 9 % (4-13); Mean Corpuscular HGB 28.4 pg (26.0-34.0); Mean Corpuscular Volume 95 fL (80-100); Mean Platelet Volume 10.5 fL (9.1-12.4); NEUTROPHILS ABSOLUTE AUTO 4.07 K/mm3 (1.96-9.15); NEUTROPHILS PERCENT AUTO 59 % (41-73); Platelet Count 218 K/mm3 (150-400); RDW Coefficient Variation 15.9 % (11.7-14.2); RDW Standard Deviation 55.1 fL (35.1-46.3); White Blood Cell Count 6.86 K/mm3 (4.00-11.30)
[2019-06-15 11:33] LABS: Albumin, Blood 3.4 g/dL (3.4-5.0); Albumin/Globulin Ratio 0.7 (0.8-1.8); Bilirubin, Total 0.3 mg/dL (0.1-1.0); Bun/Creatinine Ratio 24.3 (12.0-20.0); Calcium, Blood 8.9 mg/dL (8.5-10.1); Creatinine, Blood 1.4 mg/dL (0.40-1.00); Globulin, Blood 4.8 g/dL (2.2-4.0); Total Protein, Blood 8.2 g/dL (6.4-8.2)
[2019-06-15 12:09] LABS: International Normalized Ratio 0.93; Prothrombin Time Results 9.9 Sec (9.7-11.5)
--- NOTE | 2019-06-15 17:49 | NUR ---
SHIFT SUMMARY: PT ADMITTED FROM THE ED THIS AFTERNOON AND WAS C/O PAIN UPON ARRIVAL. PT STATES SHE HAD A HEADACHE SINCE THIS MORNING AND HER IV SITE WAS BURNING AND THAT ARM HURT. UPON ASSESSMENT, THE IV TO HER RIGHT ARM HAD INFILTRATED, THE FLUIDS WERE STOPPED AND IV REMOVED, HER RIGHT ARM WAS ELEVATED ON A PILLOW AND PAIN MEDS GIVEN ORDERED. PT IS INCONTINENT BUT STATES IF SHE HAD HER CANE FROM HOME SHE COULD GET UP AND GO TO THE TOILET IF SHE HAD HELP IN TIME TO GET HER THERE AND STATES THAT HER IS BRINGING HER CANE. IV ATTEMPTS WERE MADE BY THE CHARGE NURSE AND WERE UNSUCCESSFUL. DR NEVES WAS NOTIFIED AND ASKED FOR PO MEDS FOR THE NIGHTS AND ABO ORDERS WERE ENTERED BY . LUNGS SOUNDS ARE COARSE R/T DX OF PNA. PT IS ON O2 VIA NASAL CANNULA AND WAS ENCOURAGED TO TAKE SLOW DEEP BREATHS. PT USES HER CALL LIGHT FOR HELP WHEN NEEDED.
[2019-06-16 05:29] LABS: BASOPHILS PERCENT AUTO 0 % (0-2); EOSINOPHILS PERCENT AUTO 0 % (0-6); Hematocrit 34.5 % (33.0-51.0); IMMATURE GRAN ABSOLUTE AUTO 0.03 K/mm3 (0.00-0.10); IMMATURE GRAN PERCENT AUTO 1 % (0-1); LYMPHOCYTES ABSOLUTE AUTO 0.73 K/mm3 (0.84-5.20); LYMPHOCYTES PERCENT AUTO 11 % (21-46); MONOCYTES PERCENT AUTO 3 % (4-13); Mean Corpuscular HGB 29.2 pg (26.0-34.0); Mean Corpuscular HGB Conc 31.9 g/dL (31.5-36.5); Mean Corpuscular Volume 92 fL (80-100); Mean Platelet Volume 10.6 fL (9.1-12.4); NEUTROPHILS ABSOLUTE AUTO 5.62 K/mm3 (1.96-9.15); NEUTROPHILS PERCENT AUTO 85 % (41-73); Platelet Count 216 K/mm3 (150-400); RDW Coefficient Variation 15.3 % (11.7-14.2); RDW Standard Deviation 51.1 fL (35.1-46.3); Red Blood Cell Count 3.77 M/mm3 (3.80-5.20); White Blood Cell Count 6.58 K/mm3 (4.00-11.30)
[2019-06-16 05:58] LABS: Bun/Creatinine Ratio 31.2 (12.0-20.0); Creatinine, Blood 1.25 mg/dL (0.40-1.00); Potassium, Blood 4.1 mmol/L (3.5-5.5)
--- NOTE | 2019-06-16 06:31 | NUR ---
69 year old Female admitted from home after developing cough nonproductive loose. Sats were 88% on room air. PT continues on antibiotics oral and IV to treat aspiration pneumonia. Alert but forgetful multiple requests while awake. She is up with 1 to 2 to BS and voids and is incontinent. PT has 2 falls this year resulting in subdural hematomas on in December one in February. Hx of patella fracture with refracture reported by PT when she fell again. Powerglide placed under ultrasound and is patent. blood for labs drawn from lt upper arm powerglide. oxygen 2 l nc to keep sats greater than 90%. Medicated with tylenol at HS for headache pain with helpful effect. Continues on high risk fall precautions. IV fluid x 1 liter.
--- NOTE | 2019-06-16 16:49 | NUR ---
SHIFT SUMMARY PT AWAKE DURING SHIFT REPORT, WATCHING TV. A&O, BUT FORGETFUL AND IMPULSIVE. BED ALARM ON FOR SAFETY. HX OF FALLS WITH 2 SUBDURAL HEMATOMAS. ADMITTED FOR ASPIRATION PNM. ON 2L O2 NC, DURING SHIFT REPORT, BUT KEPT REMOVING TUBING FROM NARES AND PLACING ON HEAD. BIOX 97% ON RA; PT LEFT ON RA. SP TX TO FOR EVAL; DIET CHANGES MADE. PT TO RADIOLOGY FOR BARIUM SWALLOW EVAL. PT THEN RETURNED TO FOR LUNCH. PT COMPLAINED THAT SHE DID NOT WANT TO EAT [facility] SOFT DIET AND NECTAR LIQUIDS. PT REPORTED THAT SHE EATS AND DRINKS WHAT SHE WANTS AT HOME, EVEN THOUGH SHE COUGHS WHEN DOING SO. PT REPORTED THAT SHE STARTED COUGHING AT HOME AFTER EATING AND DRINKING AND TOLD HER TO CALL 911. SHE WAS THEN ADMITTED FOR ASP PNM. 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 2P ASSIST W/GAITBELT IF PT DOESNOT HAVE CANE IN RT HAND FOR SUPPORT. PT VERY IMPATIENT AND IMPULSIVE; CONSTANTLY TRYING TO GET OOB OR OUT OF CHAIR; SETTING ALARMS OFF. PT BECAME AGITATED AFTER DIET CHANGES MADE, WANTING TO GO HOME. PT TX TO 352 IN SCU. REPORT GIVEN TO MINDA CARTER. BED ALARM ON FOR SAFETY. CALL LT IN REACH. PT TO RADIOLOGY AFTER TX, VIA W/C.
--- NOTE | 2019-06-17 04:25 | NUR ---
SHIFT SUMMARY PT IS ALERT, ORIENTED, AND ONE ASSIST. NO COMPLAINTS OF SOB. PILLS TAKEN WELL IN APPLE SAUCE. PT UP TO THE COMMODE NEEDED. PT MEDICATED FOR PAIN ORDERED. NO OTHER COMPLAINTS AT THIS TIME. WILL CONTINUE TO MONITOR.
--- NOTE | 2019-06-17 18:32 | NUR ---
PT. BACK IN BED AFTER BEING UP FOR DINNER. PT. WAS MORE COOPERATIVE TODAY. SHE IS A PROBABLE DISCHARGE TO [facility] FOR [facility]. TAYLER RODRIGUEZ IS COORDINATING THIS. SOME ONE IS TO COME ASSESS HER FROM [facility]. PT. HAD A LARGE BM TODAY. NO NOTEABLE CHANGES THIS SHIFT. ALL MEDS HAVE BEEN CHANGED TO P.O. IN ANTICIPATION OF DISCHARGE. MEDS STILL BEING CRUSHED AND GIVEN IN APPLESAUCE.
--- NOTE | 2019-06-18 04:15 | NUR ---
SHIFT SUMMARY PT IS ALERT AND ORIENTED. PT HAD NO CLINICAL CHANGE DURING THE SHIFT. PT APPEARS TO BE ANXIOUS AND EXCITED FOR DISCHARGE. PAIN WAS ADEQUATELY TREATED WITH ORDERED PAIN MEDICATIONS. VSS. NO COMPLAINTS FROM PT. WILL CONTINUE TO MONITOR.
[2019-06-18 05:07] LABS: Albumin, Blood 3.2 g/dL (3.4-5.0); Anion Gap 6 mmol/L (6-16); Blood Urea Nitrogen 26 mg/dL (8-24); Bun/Creatinine Ratio 20.3 (12.0-20.0); CO2, Blood 25 mmol/L (21-32); Calcium, Blood 8.6 mg/dL (8.5-10.1); Chloride, Blood 112 mmol/L (98-108); Creatinine, Blood 1.28 mg/dL (0.40-1.00); Glomerular Filtration Rate 44 (60-); Glucose, Blood 89 mg/dL (70-99); Phosphorus, Blood 3.7 mg/dL (2.5-4.9); Potassium, Blood 3.7 mmol/L (3.5-5.5); Sodium, Blood 143 mmol/L (136-145)
[2019-06-18] MEDS ORDERED: AMOCLA875 PO (10:53)
[2019-06-18] MEDS ORDERED: Vsl#3 Capsule1 EACH PO (10:53)
[2019-06-18] MEDS ORDERED: [UNRECOGNIZED DRUG - OTHER] PO (10:55)
--- NOTE | 2019-06-18 17:51 | NUR ---
DISHCARGE SUMMARY PT DISCHARGED TO [facility]. REPORT CALLED TO [facility] AT 1726 AND PT LEFT SHORTLY AFTER VIA WHEELCHAIR. PT'S SPOUSE NOTIFIED OF DISCHARGE AT 1600. IV DC'D AND BELONGINGS RETURNED.
== END 2019-06-18 17:26 | disposition home health service (06) | DRG 177 ==
LOC: ER 09:01 → MEDS 13:51 → EDPENDDIS 06-18 10:33 → ENPENDDIS 06-18 10:33 → MEDS 06-18 17:26
PROVIDERS: Physician Assistant; ADMIT Internal Medicine
DX: J69.0 Pneumonitis due to inhalation of food and vomit (principal); J96.01 Acute respiratory failure with hypoxia; I69.954 Hemiplegia and hemiparesis following unspecified cerebrovascular disease affecting left non-dominant side; E78.5 Hyperlipidemia, unspecified; F01.50 Vascular dementia, unspecified severity, without behavioral disturbance, psychotic disturbance, mood disturbance, and anxiety; G89.29 Other chronic pain; N18.3 Chronic kidney disease, stage 3 (moderate); I12.9 Hypertensive chronic kidney disease with stage 1 through stage 4 chronic kidney disease, or unspecified chronic kidney disease; D50.9 Iron deficiency anemia, unspecified; D63.1 Anemia in chronic kidney disease; I25.10 Atherosclerotic heart disease of native coronary artery without angina pectoris; F32.9 Major depressive disorder, single episode, unspecified; I25.2 Old myocardial infarction; Z95.5 Presence of coronary angioplasty implant and graft; Z87.891 Personal history of nicotine dependence; Z79.899 Other long term (current) drug therapy; Z87.440 Personal history of urinary (tract) infections; Z51.5 Encounter for palliative care
CPT/HCPCS: 36415; 71046; 74230; 80048; 80053; 80069; 81001; 83605; 85025; 85610; 85730; 87086; 92610; 92611; 93005; 93010; 94640; 94760; 96365; 96366; 96367; 96375; 97110; 97116; 97161; 97166; 97530; 99285-25; A9270; C1751; J0456; J0696; J1650; J1940; J2405; J2543; J2930; J7030; J7050; P9612

== ENCOUNTER 2019-10-08 14:41 | Emergency (ER) | payer OTHER ==
[~2019-10-08] VITALS: Ht 162.6 cm; Wt 74.8 kg
[~2019-10-08 14:41] MED LIST changes: +AMOCLA875 PO; +Vsl#3 Capsule1 EACH PO; +[UNRECOGNIZED DRUG - OTHER] PO
[2019-10-08] MEDS ORDERED: ACET325 PO (15:14)
[2019-10-08] MEDS ORDERED: DOCU100 PO (15:14)
[2019-10-08] MEDS ORDERED: SENN187 PO (15:14)
[2019-10-08] MEDS ORDERED: LABE100 PO (15:19)
[2019-10-08] MEDS ORDERED: PRAVASTATIN SOD10 MG PO (15:20)
[2019-10-08] MEDS ORDERED: LOSA25 PO (15:24)
== END 2019-10-08 18:01 | disposition home or self-care (01) ==
LOC: ER 14:41
DX: S00.83XA Contusion of other part of head, initial encounter (principal); S80.212A Abrasion, left knee, initial encounter; I10 Essential (primary) hypertension; G89.29 Other chronic pain; Z86.73 Personal history of transient ischemic attack (TIA), and cerebral infarction without residual deficits; Z79.899 Other long term (current) drug therapy; Z87.891 Personal history of nicotine dependence; W18.30XA Fall on same level, unspecified, initial encounter
CPT/HCPCS: 51701; 70450; 82947; 96374-59; 99284-25; A9270

== ENCOUNTER 2019-10-10 12:14 | Emergency (ER) | payer OTHER ==
[~2019-10-10] VITALS: Ht 152.4 cm; Wt 68.0 kg
[~2019-10-10 12:14] MED LIST changes: +ACET325 PO; +DOCU100 PO; +LOSA25 PO; +PRAVASTATIN SOD10 MG PO; +SENN187 PO
== END 2019-10-10 14:00 | disposition home or self-care (01) ==
LOC: ER 12:14
DX: S62.365A Nondisplaced fracture of neck of fourth metacarpal bone, left hand, initial encounter for closed fracture (principal); S62.367A Nondisplaced fracture of neck of fifth metacarpal bone, left hand, initial encounter for closed fracture; R29.898 Other symptoms and signs involving the musculoskeletal system; I13.0 Hypertensive heart and chronic kidney disease with heart failure and stage 1 through stage 4 chronic kidney disease, or unspecified chronic kidney disease; I50.9 Heart failure, unspecified; N18.3 Chronic kidney disease, stage 3 (moderate); D63.1 Anemia in chronic kidney disease; I25.10 Atherosclerotic heart disease of native coronary artery without angina pectoris; I25.2 Old myocardial infarction; E78.5 Hyperlipidemia, unspecified; D50.9 Iron deficiency anemia, unspecified; Z79.899 Other long term (current) drug therapy; Z95.5 Presence of coronary angioplasty implant and graft; Z86.73 Personal history of transient ischemic attack (TIA), and cerebral infarction without residual deficits; W19.XXXA Unspecified fall, initial encounter
CPT/HCPCS: 29125; 73060; 73090; 73120; 99283-25

== ENCOUNTER 2019-11-17 10:32 | Emergency (ER) | payer OTHER ==
[~2019-11-17] VITALS: Ht 167.6 cm; Wt 90.7 kg
== END 2019-11-17 13:43 | disposition home or self-care (01) ==
LOC: ER 10:32
DX: R07.9 Chest pain, unspecified (principal); I10 Essential (primary) hypertension; Z79.899 Other long term (current) drug therapy; Z86.73 Personal history of transient ischemic attack (TIA), and cerebral infarction without residual deficits; Z87.891 Personal history of nicotine dependence
CPT/HCPCS: 71045; 93005; 93010; 99285-25; A9270-GY

== ENCOUNTER 2020-02-14 12:13 | Emergency (ER) | payer OTHER ==
[~2020-02-14] VITALS: Ht 162.6 cm; Wt 76.2 kg
[~2020-02-14 12:13] MED LIST changes: +HYDRA25 PO; +MELA3 PO
[2020-02-14] MEDS ORDERED: FURO40 PO (12:30)
[2020-02-14] MEDS ORDERED: AMLO5 PO (12:31)
[2020-02-14] MEDS ORDERED: TOPI25 PO (12:31)
[2020-02-14] MEDS ORDERED: Roxicodone5 MG PO (15:21)
== END 2020-02-14 15:25 | disposition home or self-care (01) ==
LOC: ER 12:13
DX: S93.402A Sprain of unspecified ligament of left ankle, initial encounter (principal); S40.012A Contusion of left shoulder, initial encounter; I25.2 Old myocardial infarction; I12.9 Hypertensive chronic kidney disease with stage 1 through stage 4 chronic kidney disease, or unspecified chronic kidney disease; N18.9 Chronic kidney disease, unspecified; I25.10 Atherosclerotic heart disease of native coronary artery without angina pectoris; E78.5 Hyperlipidemia, unspecified; F32.9 Major depressive disorder, single episode, unspecified; D64.9 Anemia, unspecified; Z79.899 Other long term (current) drug therapy; Z86.73 Personal history of transient ischemic attack (TIA), and cerebral infarction without residual deficits; Z87.891 Personal history of nicotine dependence; W18.30XA Fall on same level, unspecified, initial encounter
CPT/HCPCS: 73030; 73610; 99283-25

== ENCOUNTER 2020-09-17 12:43 | Emergency (ER) | payer OTHER ==
[~2020-09-17] VITALS: Ht 157.5 cm; Wt 79.8 kg
[~2020-09-17 12:43] MED LIST changes: +AMLO5 PO; +FURO40 PO; +Roxicodone5 MG PO; +TOPI25 PO
[2020-09-17 13:13] LABS: BASOPHILS ABSOLUTE AUTO 0.03 K/mm3 (0.00-0.23); BASOPHILS PERCENT AUTO 1 % (0-2); EOSINOPHILS ABSOLUTE AUTO 0.09 K/mm3 (0.00-0.68); EOSINOPHILS PERCENT AUTO 2 % (0-6); Hematocrit 43.5 % (33.0-51.0); Hemoglobin 13.7 g/dL (11.5-16.0); IMMATURE GRAN ABSOLUTE AUTO 0.01 K/mm3 (0.00-0.10); IMMATURE GRAN PERCENT AUTO 0 % (0-1); LYMPHOCYTES ABSOLUTE AUTO 1.69 K/mm3 (0.84-5.20); LYMPHOCYTES PERCENT AUTO 31 % (21-46); MONOCYTES ABSOLUTE AUTO 0.27 K/mm3 (0.16-1.47); MONOCYTES PERCENT AUTO 5 % (4-13); Mean Corpuscular HGB 29.3 pg (26.0-34.0); Mean Corpuscular HGB Conc 31.5 g/dL (31.5-36.5); Mean Corpuscular Volume 93 fL (80-100); Mean Platelet Volume 11.1 fL (9.1-12.4); NEUTROPHILS ABSOLUTE AUTO 3.44 K/mm3 (1.96-9.15); NEUTROPHILS PERCENT AUTO 62 % (41-73); Platelet Count 202 K/mm3 (150-400); RDW Coefficient Variation 13.6 % (11.7-14.2); RDW Standard Deviation 46.5 fL (35.1-46.3); Red Blood Cell Count 4.68 M/mm3 (3.80-5.20); White Blood Cell Count 5.53 K/mm3 (4.00-11.30)
[2020-09-17 13:37] LABS: Alanine Aminotransfer (ALT/SGP 47 U/L (12-78); Albumin, Blood 3.7 g/dL (3.4-5.0); Albumin/Globulin Ratio 0.9 (0.8-1.8); Alk Phos 178 U/L (50-136); Anion Gap 7 mmol/L (6-16); Aspartate Aminotrans (AST/SGOT 44 U/L (12-37); Bilirubin, Total 0.4 mg/dL (0.1-1.0); Blood Urea Nitrogen 18 mg/dL (8-24); Bun/Creatinine Ratio 15.5 (12.0-20.0); CO2, Blood 17 mmol/L (21-32); Calcium, Blood 7.9 mg/dL (8.5-10.1); Chloride, Blood 118 mmol/L (98-108); Creatinine, Blood 1.16 mg/dL (0.40-1.00); Globulin, Blood 3.9 g/dL (2.2-4.0); Glomerular Filtration Rate 49 (60-); Glucose, Blood 127 mg/dL (70-99); Potassium, Blood 4.6 mmol/L (3.5-5.5); Sodium, Blood 142 mmol/L (136-145); Total Protein, Blood 7.6 g/dL (6.4-8.2); Troponin I <0.015 ng/mL (0.000-0.040)
[2020-09-17 16:35] LABS: Troponin I <0.015 ng/mL (0.000-0.040)
== END 2020-09-17 17:35 | disposition home or self-care (01) ==
LOC: ER 12:43
PROVIDERS: Emergency Medicine; Physician Assistant
DX: R07.9 Chest pain, unspecified (principal); I10 Essential (primary) hypertension; I25.2 Old myocardial infarction; Z86.73 Personal history of transient ischemic attack (TIA), and cerebral infarction without residual deficits; Z95.5 Presence of coronary angioplasty implant and graft; Z87.891 Personal history of nicotine dependence; Z95.0 Presence of cardiac pacemaker
CPT/HCPCS: 71045; 80053; 83880; 84484; 85025; 86141; 93005; 93010; 99285-25

== ENCOUNTER 2021-03-28 10:50 | Emergency (ER) | payer OTHER ==
[~2021-03-28] VITALS: Ht 157.5 cm; Wt 77.1 kg
[2021-03-28 11:48] LABS: Albumin, Blood 3.9 g/dL (3.4-5.0); Bilirubin, Total 0.5 mg/dL (0.1-1.0); Bun/Creatinine Ratio 15.3 (12.0-20.0); Calcium, Blood 8.2 mg/dL (8.5-10.1); Creatinine, Blood 1.9 mg/dL (0.40-1.00); Globulin, Blood 3.8 g/dL (2.2-4.0); Potassium, Blood 3.6 mmol/L (3.5-5.5); Total Protein, Blood 7.7 g/dL (6.4-8.2); Troponin I 0.023 ng/mL (0.000-0.040)
[2021-03-28 12:10] LABS: BASOPHILS ABSOLUTE AUTO 0.02 K/mm3 (0.00-0.23); BASOPHILS PERCENT AUTO 0 % (0-2); EOSINOPHILS ABSOLUTE AUTO 0.07 K/mm3 (0.00-0.68); EOSINOPHILS PERCENT AUTO 1 % (0-6); Hematocrit 45.2 % (33.0-51.0); Hemoglobin 14.9 g/dL (11.5-16.0); IMMATURE GRAN ABSOLUTE AUTO 0.02 K/mm3 (0.00-0.10); IMMATURE GRAN PERCENT AUTO 0 % (0-1); LYMPHOCYTES ABSOLUTE AUTO 1.76 K/mm3 (0.84-5.20); LYMPHOCYTES PERCENT AUTO 18 % (21-46); MONOCYTES ABSOLUTE AUTO 0.73 K/mm3 (0.16-1.47); MONOCYTES PERCENT AUTO 8 % (4-13); Mean Corpuscular HGB 29.9 pg (26.0-34.0); Mean Corpuscular Volume 91 fL (80-100); Mean Platelet Volume 10.7 fL (9.1-12.4); NEUTROPHILS ABSOLUTE AUTO 7.01 K/mm3 (1.96-9.15); NEUTROPHILS PERCENT AUTO 73 % (41-73); Platelet Count 261 K/mm3 (150-400); RDW Coefficient Variation 13.5 % (11.7-14.2); RDW Standard Deviation 45.1 fL (35.1-46.3); Red Blood Cell Count 4.98 M/mm3 (3.80-5.20); White Blood Cell Count 9.61 K/mm3 (4.00-11.30)
== END 2021-03-28 17:03 | disposition home or self-care (01) ==
LOC: ER 10:50
PROVIDERS: Emergency Medicine
DX: I95.9 Hypotension, unspecified (principal); I12.9 Hypertensive chronic kidney disease with stage 1 through stage 4 chronic kidney disease, or unspecified chronic kidney disease; I25.2 Old myocardial infarction; N18.9 Chronic kidney disease, unspecified; E78.5 Hyperlipidemia, unspecified; Z88.8 Allergy status to other drugs, medicaments and biological substances; Z79.899 Other long term (current) drug therapy; Z87.891 Personal history of nicotine dependence
CPT/HCPCS: 36415; 80053; 84484; 85025; 93005; 93010; 99285-25

== ENCOUNTER 2021-04-27 19:05 | Emergency (ER) | payer OTHER ==
[~2021-04-27] VITALS: Ht 157.5 cm; Wt 82.1 kg
[2021-04-27 19:54] LABS: BASOPHILS ABSOLUTE AUTO 0.04 K/mm3 (0.00-0.23); BASOPHILS PERCENT AUTO 1 % (0-2); EOSINOPHILS ABSOLUTE AUTO 0.32 K/mm3 (0.00-0.68); EOSINOPHILS PERCENT AUTO 5 % (0-6); Hematocrit 41.7 % (33.0-51.0); Hemoglobin 13.9 g/dL (11.5-16.0); IMMATURE GRAN ABSOLUTE AUTO 0.02 K/mm3 (0.00-0.10); IMMATURE GRAN PERCENT AUTO 0 % (0-1); LYMPHOCYTES ABSOLUTE AUTO 2.08 K/mm3 (0.84-5.20); LYMPHOCYTES PERCENT AUTO 33 % (21-46); MONOCYTES ABSOLUTE AUTO 0.48 K/mm3 (0.16-1.47); MONOCYTES PERCENT AUTO 8 % (4-13); Mean Corpuscular HGB 30.2 pg (26.0-34.0); Mean Corpuscular HGB Conc 33.3 g/dL (31.5-36.5); Mean Corpuscular Volume 91 fL (80-100); Mean Platelet Volume 10.2 fL (9.1-12.4); NEUTROPHILS PERCENT AUTO 54 % (41-73); Platelet Count 241 K/mm3 (150-400); RDW Coefficient Variation 13.3 % (11.7-14.2); RDW Standard Deviation 44.3 fL (35.1-46.3); White Blood Cell Count 6.34 K/mm3 (4.00-11.30)
[2021-04-27 20:20] LABS: Albumin, Blood 3.7 g/dL (3.4-5.0); Albumin/Globulin Ratio 0.9 (0.8-1.8); Bilirubin, Total 0.3 mg/dL (0.1-1.0); Bun/Creatinine Ratio 16.4 (12.0-20.0); Calcium, Blood 8.8 mg/dL (8.5-10.1); Creatinine, Blood 1.22 mg/dL (0.40-1.00); Globulin, Blood 3.9 g/dL (2.2-4.0); Potassium, Blood 4.2 mmol/L (3.5-5.5); Total Protein, Blood 7.6 g/dL (6.4-8.2)
== END 2021-04-27 23:17 | disposition home or self-care (01) ==
LOC: ER 19:05
PROVIDERS: Physician Assistant
DX: R60.0 Localized edema (principal); I12.9 Hypertensive chronic kidney disease with stage 1 through stage 4 chronic kidney disease, or unspecified chronic kidney disease; N18.30 Chronic kidney disease, stage 3 unspecified; Z88.8 Allergy status to other drugs, medicaments and biological substances; Z79.899 Other long term (current) drug therapy; Z87.891 Personal history of nicotine dependence
CPT/HCPCS: 36415; 71046; 80053; 83880; 85025; 93005; 93010; 99284-25

== ENCOUNTER 2021-05-15 15:53 | Emergency (ER) | payer OTHER ==
[~2021-05-15] VITALS: Ht 162.6 cm; Wt 81.7 kg
== END 2021-05-15 18:10 ==
LOC: ER 15:53
DX: I46.9 Cardiac arrest, cause unspecified (principal); I49.01 Ventricular fibrillation; I12.9 Hypertensive chronic kidney disease with stage 1 through stage 4 chronic kidney disease, or unspecified chronic kidney disease; N18.30 Chronic kidney disease, stage 3 unspecified; Z95.0 Presence of cardiac pacemaker; Z88.8 Allergy status to other drugs, medicaments and biological substances; Z87.891 Personal history of nicotine dependence; Z79.899 Other long term (current) drug therapy
CPT/HCPCS: 92950; 96374-59; 96375-59; 99285-25